=== PATIENT | male | born 1995 | race Caucasian/White ===

== ENCOUNTER 2019-02-10 10:38 | Outpatient (CLI) | payer OTHER ==
--- NOTE | 2019-02-10 12:27 | CT ---
CT Abdomen Pelvis WO Con History: [R 10.9, G 89.29. Right flank pain.] Comparison: None. Findings: Lung bases are clear. No pericardial effusion. There is mild fullness of the right renal pelvis and the right ureter without nephroureterolithiasis appreciated. No perinephric stranding. The appendix is visualized and is normal. No dilated loops of large or small bowel. Liver, spleen, pancreas, gallbladder are all unremarkable given the noncontr ast appearance. Adrenal glands are unremarkable. No retroperitoneal adenopathy. No osseous abnormality. Impression: 1. Mild fullness of the right renal pelvis and right ureter without nephrolithiasis can be seen with a recently passed stone. No significant perinephric stranding. 2. Normal appendix.
== END 2019-02-10 10:39 | disposition home or self-care (01) ==
LOC: SCSCT 10:38
DX: R10.9 Unspecified abdominal pain (principal); G89.29 Other chronic pain
CPT/HCPCS: 74176